=== PATIENT | male | born 1945 | race Caucasian/White ===

== ENCOUNTER → 2020-11-16 | Outpatient (CLI) | payer MEDICARE, BC | LOC: COL.PUL 11:16 | DX: R05 Cough (principal) ==

== ENCOUNTER → 2021-08-28 | Outpatient (CLI) | payer MEDICARE, BC | LOC: COL.RAD 13:00 | DX: M70.61 Trochanteric bursitis, right hip (principal); M16.11 Unilateral primary osteoarthritis, right hip | CPT/HCPCS: J3301; Q9967 ==

== ENCOUNTER 2021-09-13 07:38 | Inpatient (IN) | payer MEDICARE, BC ==
[~2021-09-13] VITALS: Ht 182.9 cm; Wt 95.0 kg
[2021-09-13] VITALS (17 sets, daily range): BP systolic 95–142; BP diastolic 36–98; PULSE 66–90; TEMP 98.2–98.7
[2021-09-13 08:33] LABS: BASO # 0.1 K/mm3 (0.0-0.2); BASO % 0.5 % (0.0-2.0); EOS # 0.4 K/mm3 (0.0-0.7); GRAN # 8.1 K/mm3 (1.4-6.5); GRAN % 70.1 % (42.2-75.2); LYMPH # 1.9 K/mm3 (1.2-3.4); LYMPH % 16.4 % (20.0-51.0); MEAN CELL VOLUME 99 fl (80.0-100.0); MEAN CORPUSCULAR HGB CONC 33 g/dl (33.0-37.0); MONO # 1.1 K/mm3 (0.1-0.6); MONO % 9.2 % (1.7-9.3); PLATELET COUNT 201 K/mm3 (130-400); RED BLOOD COUNT 5.89 M/mm3 (4.20-5.60); REDCELL DISTRIBUTION WIDTH-CV 13.7 % (11.5-14.5)
[2021-09-13 08:35] LABS: HEMATOCRIT 58.2 % (42.0-52.0); HEMOGLOBIN 19.4 g/dl (13.5-18.0); MEAN CORPUSCULAR HEMOGLOBIN 33 pg (27-31)
[2021-09-13 08:39] LABS: INR 1.4 (0.8-3.0); PROTHROMBIN TIME 16.3 SECONDS (9.7-12.8)
[2021-09-13 08:42] LABS: PARTIAL THROMBOPLASTIN TIME 54.6 SECONDS (26.0-37.0)
[2021-09-13] MEDS ORDERED: REMERON 15M15 MG/TA1 PO (08:43)
[2021-09-13] MEDS ORDERED: NORCO 325 MG-7.1 TAB PO (08:43)
[2021-09-13] MEDS ORDERED: K-DUR 10 MEQ T10 MEQ PO (08:44)
[2021-09-13] MEDS ORDERED: XARELTO20 MG PO (08:44)
[2021-09-13] MEDS ORDERED: TOPROL XL 50MG50 MG PO (08:45)
[2021-09-13] MEDS ORDERED: LASIX 20MG TABL20 MG PO (08:45)
[2021-09-13] MEDS ORDERED: ATARAX 25MG25 MG/TAB PO (08:45)
[2021-09-13] MEDS ORDERED: LIPITOR 10MG10 MG PO (08:46)
[2021-09-13] MEDS ORDERED: ULTRAM 50MG TAB50 MG PO (08:46)
[2021-09-13] MEDS ORDERED: GLUCOPHAGE XR500 M1 PO (08:46)
[2021-09-13] MEDS ORDERED: PRINZIDE 25 MG-1 TAB PO (08:47)
[2021-09-13] MEDS ORDERED: TRIAMCINOLONE A15 G3 TP (08:48)
[2021-09-13] MEDS ORDERED: VENTOLIN0.09 MG IH (08:48)
[2021-09-13] MEDS ORDERED: BACTROBAN15 GM TOP (08:48)
[2021-09-13 08:51] LABS: CALCIUM 9.3 mg/dL (8.4-10.2); CREATININE, serum 0.94 mg/dL (0.72-1.25); MAGNESIUM 1.9 mg/dL (1.6-2.6); POTASSIUM 3.8 mmol/L (3.5-4.5)
[2021-09-13 09:11] LABS: TSH w REFLEX 5.196 uIU/mL (0.350-4.940)
--- NOTE | 2021-09-13 09:45 | NUR ---
Bedside echo completed. Pt alert. HOB elevated and pt able to take sips of water without issue. RT called for repeat EKG. electromechanical technologist asked to monitor. at bedside. Call light in reach.
--- NOTE | 2021-09-13 11:00 | NUR ---
Dr Aragon in to speak about medication options with pt and . O2 reapplied at 0.5L/min per NC. Pt sats ranging from 87-90% on room air. Dr Aragon aware.
--- NOTE | 2021-09-13 14:40 | NUR ---
Pt taken via personal wheelchair to Medical Floor rm 319 with personal belongings. accompanies pt to floor. WC and cane labeled with pt sticker. Phone report was given to SIOBHAN Meyer. Pt has been resting comfortably in room following procedure. He was medicated with PRN norco for c/o hip and back pain. He states this pain is improving following norco. He has ambulated to toilet in room using cane with steady gait. Tele box in place for admission, and pt has been on ekg monitor following procedure. O2 has been applied as needed to maintain sats at 90%. At time of deptarture from , pt is on room air at 93%. This was communicated to Betsy, as was Dr Aragon's desire start time of sotolol and heparin drip of 1800.
--- NOTE | 2021-09-13 18:28 | NUR ---
PT ARRIVED TO ROOM @ 1445 WITH SPOUSE. RESPIRATIONS UNLABORED ON RA. PT DOES SMELL OF CIGARRETTE SMOKE, NICOTINE PATCH HAS BEEN APPLIED TO LEFT SHOULDER. PT STATES THAT HE DOES HAVE 4 WHISKEY DRINKS PER NIGHT. PT IS CALM ET COOPERATIVE BUT DOES SEEM TO BE FIDGETY OCCASIONALLY, TAPS HANDS ET FEET, STATES THAT HE DOES BECOME BORED EASILY. PT USES CANE TO AMBULATE @ HOME. HEPARIN GTT HAS BEEN STARTED ET SOTALOL INITIATED. NEXT PTT IS ORDERED TO DRAWN @ 0000.
--- NOTE | 2021-09-13 20:30 | NUR ---
Initial shift assessment done- respiratory therapy put on 1L/nc, o2 sats 88% on RA, states has chronic back pain and would like a norco -- will give before bed-- does have lower ext edema, order to start some IV Lasix tonight- pt states understanding, Tele on SR at this time, heparin drip at 17cc/hr at this time,,will get next PTT at [place],
[2021-09-14] VITALS (7 sets, daily range): BP systolic 104–141; BP diastolic 53–86; PULSE 61–71; TEMP 97.7–98.5
--- NOTE | 2021-09-14 02:00 | NUR ---
Did have a PTT drawn around 0030- lab could not get a result? Did come up and redraw around 0115-- called me back and stated it was greater than 100 but could not give me a specific number??--had lab run a hepxa off that specimen to get a reading to go by- 1.03 hepxa--then lab stated according to her charts the PTT would be greater than 400,, did already stop the heparin drip- so will just redraw in 2 hrs according to policy both a PTT and Hepxa .
[2021-09-14 04:24] LABS: BASO # 0.1 K/mm3 (0.0-0.2); BASO % 0.5 % (0.0-2.0); EOS # 0.3 K/mm3 (0.0-0.7); EOS % 2.7 % (0.0-4.0); GRAN # 6.3 K/mm3 (1.4-6.5); GRAN % 67.3 % (42.2-75.2); HEMOGLOBIN 17.9 g/dl (13.5-18.0); LYMPH # 1.9 K/mm3 (1.2-3.4); LYMPH % 20.2 % (20.0-51.0); MEAN CELL VOLUME 98 fl (80.0-100.0); MEAN CORPUSCULAR HEMOGLOBIN 33 pg (27-31); MEAN CORPUSCULAR HGB CONC 33 g/dl (33.0-37.0); MEAN PLATELET VOLUME 10.4 fl (7.4-10.4); MONO # 0.8 K/mm3 (0.1-0.6); MONO % 8.8 % (1.7-9.3); PLATELET COUNT 167 K/mm3 (130-400); RED BLOOD COUNT 5.47 M/mm3 (4.20-5.60); REDCELL DISTRIBUTION WIDTH-CV 13.9 % (11.5-14.5)
[2021-09-14 04:27] LABS: INR 1.1 (0.8-3.0)
[2021-09-14 04:29] LABS: PARTIAL THROMBOPLASTIN TIME 47.1 SECONDS (26.0-37.0)
[2021-09-14 04:36] LABS: CALCIUM 8.8 mg/dL (8.4-10.2); CREATININE, serum 0.9 mg/dL (0.72-1.25); MAGNESIUM 1.8 mg/dL (1.6-2.6); POTASSIUM 3.5 mmol/L (3.5-4.5)
[2021-09-14 04:37] LABS: HEMATOCRIT 53.6 % (42.0-52.0)
--- NOTE | 2021-09-14 05:27 | NUR ---
Quiet night-- awake now- no requests at this time, Heparin drip was stopped for a few hours last night per protocol, now infusing at 14cc/hr {1400 units/hr},, next PTT to be drawn at 1045 this morning. VSS, o2 sat this morning 95% on RA
--- NOTE | 2021-09-14 08:00 | NUR ---
Assessment complete. A&Ox4-drowsy. Denies nausea/pain/shortenss of breath. VS remain stable. TELE reporting SR. Currently on 2L/NC due to O2 saturations dropping during sleep. Left forearm IV with heparin@1400 units/hour-infusing without difficulty. Plan of care discussed for this shift to include meds, EKG, Heparin gtt and calling for questions/concerns. Verbalizes understanding. Call light in reach. Will monitor.
--- NOTE | 2021-09-14 10:00 | NUR ---
Called with c/o pain to lower back-rating pain 8/10 on pain scale-described as constant ache with sharp stabs. Patient states this is chronic back pain and is requesting pain medications. Jamey given per dr tesfaye.
--- NOTE | 2021-09-14 10:21 | NUR ---
Initial visit; Patient thanked Rn Med Surg for offering God's blessings and keeping him in her prayers. Rn Med Surg wished him well.
--- NOTE | 2021-09-14 11:00 | NUR ---
PTT therapuetic within high dose Heparin protocol. No change mades.
--- NOTE | 2021-09-14 14:55 | NUR ---
instrument worker met with patient to complete intake and discuss discharge plan. Patient's Chyna ([phone]) present at bedside. Patient lives at home with Chyna in [place]. He is independent with his ADL's and will utilize both a cane and a wheelchair to assist with ambulation. Patient reports that he does not utilize oxygen at home but he is currently on 2 L at rest. PCP is Dr. Guardado and he utilizes [facility] pharmacy for prescriptions. Patient reports that he does have a DPOA-HC listing his . He is scheduled to get a heart cath on Thursday. Discharge plan: Home (may need home oxygen)
--- NOTE | 2021-09-14 20:30 | NUR ---
Initial shift assessment done- denies pain at this time, has been visiting with family tonight, now back in bed, no requests, denies CP or SOB, o2 at 2L/nc, lower ext edema ib better than last night, L>R,, informed to use urinal so we can measure urine after IV Lasix was given. Tele on- SR
[2021-09-15 03:04] VITALS: BP 100/42; PULSE 64; TEMP 98.3
--- NOTE | 2021-09-15 05:41 | NUR ---
Has slept well tonight- VSS, heparin drip remains at 14cc/hr , PTT is being drawn this morning-
[2021-09-15 06:43] LABS: BASO % 0.4 % (0.0-2.0); EOS # 0.3 K/mm3 (0.0-0.7); EOS % 2.2 % (0.0-4.0); GRAN % 71.5 % (42.2-75.2); HEMOGLOBIN 17.7 g/dl (13.5-18.0); LYMPH # 1.6 K/mm3 (1.2-3.4); LYMPH % 14.5 % (20.0-51.0); MEAN CELL VOLUME 99 fl (80.0-100.0); MEAN CORPUSCULAR HEMOGLOBIN 33 pg (27-31); MEAN CORPUSCULAR HGB CONC 34 g/dl (33.0-37.0); MEAN PLATELET VOLUME 10.9 fl (7.4-10.4); MONO # 1.2 K/mm3 (0.1-0.6); MONO % 10.8 % (1.7-9.3); PLATELET COUNT 164 K/mm3 (130-400); RED BLOOD COUNT 5.32 M/mm3 (4.20-5.60); REDCELL DISTRIBUTION WIDTH-CV 13.7 % (11.5-14.5)
[2021-09-15 06:47] LABS: HEMATOCRIT 52.4 % (42.0-52.0)
[2021-09-15 06:59] LABS: CALCIUM 8.9 mg/dL (8.4-10.2); CREATININE, serum 0.96 mg/dL (0.72-1.25); MAGNESIUM 1.9 mg/dL (1.6-2.6); POTASSIUM 3.5 mmol/L (3.5-4.5)
[2021-09-15 07:00] VITALS: BP 121/74; PULSE 67; TEMP 98.1
--- NOTE | 2021-09-15 07:23 | NUR ---
Assessment complete. A&Ox4. Denies pain, nausea and shortness of breath. States will get a little short of breath with activity. VS remain stable. PTT goal for heparin drip. Currently infusing at 1400 units/hour. Noted to have +1 edema to left lower extremity and +2 to right lower extremity. Plan of care discussed for this shift to include meds, lab draws and calling for questions/concerns. Call light in reach. Will monitor.
[2021-09-15 12:00] VITALS: BP 102/53; PULSE 65
[2021-09-15 16:00] VITALS: BP 93/53; PULSE 63
--- NOTE | 2021-09-15 17:56 | NUR ---
C/O low back pain-rating pain 09/01-described as constant throbbing. [place] given per dr tesfaye
--- NOTE | 2021-09-15 18:40 | NUR ---
Patient rested most of the day. Received two doses of norco per dr order brandon back pain. Heparin drip continues to infuse at 1400 units/hour to left forearm 20g without difficulty. Plan discussed for NPO at midnight for AM heart cath.
[2021-09-15 19:36] VITALS: BP 111/59; PULSE 68; TEMP 97.8
[2021-09-15 23:48] VITALS: BP 120/76; PULSE 57; TEMP 97.9
[2021-09-16] VITALS (14 sets, daily range): BP systolic 88–121; BP diastolic 60–79; PULSE 54–61; TEMP 97.7–98
[2021-09-16 06:34] LABS: BASO # 0.1 K/mm3 (0.0-0.2); BASO % 0.5 % (0.0-2.0); EOS # 0.2 K/mm3 (0.0-0.7); EOS % 2.5 % (0.0-4.0); GRAN # 6.4 K/mm3 (1.4-6.5); GRAN % 66.8 % (42.2-75.2); HEMOGLOBIN 18.3 g/dl (13.5-18.0); LYMPH # 1.9 K/mm3 (1.2-3.4); MEAN CELL VOLUME 99 fl (80.0-100.0); MEAN CORPUSCULAR HEMOGLOBIN 33 pg (27-31); MEAN CORPUSCULAR HGB CONC 33 g/dl (33.0-37.0); MEAN PLATELET VOLUME 11.3 fl (7.4-10.4); MONO # 0.9 K/mm3 (0.1-0.6); MONO % 9.7 % (1.7-9.3); PLATELET COUNT 164 K/mm3 (130-400); RED BLOOD COUNT 5.57 M/mm3 (4.20-5.60); REDCELL DISTRIBUTION WIDTH-CV 13.5 % (11.5-14.5)
[2021-09-16 06:41] LABS: PROTHROMBIN TIME 11.9 SECONDS (9.7-12.8)
[2021-09-16 06:44] LABS: PARTIAL THROMBOPLASTIN TIME 91.7 SECONDS (26.0-37.0)
[2021-09-16 07:17] LABS: CREATININE, serum 0.95 mg/dL (0.72-1.25); MAGNESIUM 1.9 mg/dL (1.6-2.6); POTASSIUM 3.5 mmol/L (3.5-4.5)
--- NOTE | 2021-09-16 10:13 | NUR ---
See merge for all medication, assessment, intervention, and vital sign times.
--- NOTE | 2021-09-16 10:27 | NUR ---
Follow-up visit; Patient states he is getting better and thanked Water Gas Operator for looking in on him again and keeping him in her prayers.
[2021-09-16] MEDS ORDERED: BETAPACE 80MG80 MG PO (13:28)
[2021-09-16] MEDS ORDERED: NICODERM C7 MG/PATCH TD (13:29)
--- NOTE | 2021-09-16 14:13 | NUR ---
Galley Worker met with patient and presented IM form as patient may discharge home later today. Patient verbalized understanding of IM form and provided signature. SW placed form in chart and provided copy to patient. Patient plans to discharge home and is hopeful it will be soon.
--- NOTE | 2021-09-16 16:03 | NUR ---
1600 - DISCHARGE PACKET AND PATIENT EDUCATION GIVEN TO PATIENT AND FAMILY. ALL QUESTIONS ANSWERED. RIGHT RADIAL SITE CDI WITHOUT S/S OF BLEEDING. IV REMOVED PER PROTOCOL. PATIENT SAFELY TRANSPORTED TO ER ENTRANCE WITH FAMILY.
== END 2021-09-16 16:00 | disposition home or self-care (01) | DRG 260 ==
LOC: COL.CAR 07:38 → MEDICAL 14:45
PROVIDERS: ADMIT Internal Medicine Adult Congenital Heart Disease
PROC: 5A2204Z Restoration of Cardiac Rhythm, Single (ICD-10-PCS; 2021-09-13)
PROC: 0JH632Z Insertion of Monitoring Device into Chest Subcutaneous Tissue and Fascia, Percutaneous Approach (ICD-10-PCS; principal; 2021-09-16)
DX: I48.19 Other persistent atrial fibrillation (principal); I50.23 Acute on chronic systolic (congestive) heart failure; I42.8 Other cardiomyopathies; E78.5 Hyperlipidemia, unspecified; E11.9 Type 2 diabetes mellitus without complications; M19.90 Unspecified osteoarthritis, unspecified site; J44.9 Chronic obstructive pulmonary disease, unspecified; G89.29 Other chronic pain; M54.50 Low back pain, unspecified; I11.0 Hypertensive heart disease with heart failure; I48.0 Paroxysmal atrial fibrillation; I08.1 Rheumatic disorders of both mitral and tricuspid valves
CPT/HCPCS: C1769; J0282; J1644; J1940; J2250; J2704; J3010; J7120; Q9967

== ENCOUNTER → 2021-12-23 | Outpatient (RCR) | payer MEDICARE, BC ==
[~2021-12-23] MED LIST: ATARAX 25MG25 MG/TAB PO; BACTROBAN15 GM TOP; BETAPACE 80MG80 MG PO; GLUCOPHAGE XR500 M1 PO; K-DUR 10 MEQ T10 MEQ PO; LASIX 20MG TABL20 MG PO; LIPITOR 10MG10 MG PO; NICODERM C7 MG/PATCH TD; NORCO 325 MG-7.1 TAB PO; PRINZIDE 25 MG-1 TAB PO; REMERON 15M15 MG/TA1 PO; TOPROL XL 50MG50 MG PO; TRIAMCINOLONE A15 G3 TP; ULTRAM 50MG TAB50 MG PO; VENTOLIN0.09 MG IH; XARELTO20 MG PO
== END | disposition home or self-care (01) ==
LOC: COL.CR
DX: I50.22 Chronic systolic (congestive) heart failure (principal)

== ENCOUNTER → 2021-12-25 | Outpatient (CLI) | payer MEDICARE, BC | LOC: DIA.ED 12:27 | DX: E11.65 Type 2 diabetes mellitus with hyperglycemia (principal); E11.59 Type 2 diabetes mellitus with other circulatory complications; I10 Essential (primary) hypertension; Z79.84 Long term (current) use of oral hypoglycemic drugs ==

== ENCOUNTER → 2023-03-18 | Outpatient (CLI) | payer MEDICARE, BC ==
[~2023-03-18] MED LIST changes: +Iohexol 300 - 10 ML VIAL IV ONE; +Triamcinolone 40 MG/ML 1 ML VIAL IJ ONE
== END ==
LOC: COL.RAD 09:12
DX: M70.61 Trochanteric bursitis, right hip (principal); M16.11 Unilateral primary osteoarthritis, right hip
CPT/HCPCS: J0665; J3301; Q9967

== ENCOUNTER → 2023-10-09 | Outpatient (CLI) | payer MEDICARE, BC ==
[~2023-10-09] MED LIST changes: -Iohexol 300 - 10 ML VIAL IV ONE; -Triamcinolone 40 MG/ML 1 ML VIAL IJ ONE
== END ==
LOC: COL.RAD 08:23
DX: Z12.2 Encounter for screening for malignant neoplasm of respiratory organs (principal); Z87.891 Personal history of nicotine dependence